=== PATIENT | male | born 1960 | race Caucasian/White ===

== ENCOUNTER 2017-07-14 22:28 | Emergency (ER) | payer BC ==
[~2017-07-14] VITALS: Ht 188 cm; Wt 121.0 kg
[2017-07-14 23:23] VITALS: BP 139/93; PULSE 90; RESP 18; O2SAT 95
--- NOTE | 2017-07-14 23:43 | PD ---
HPI Chief Complaint: Cardiac Complaint Time Seen by Provider: 23:27 Travel History International Travel<30 days: No Contact w/Intl Traveler<30days: No Traveled to known affect area: No History of Present Illness HPI 57-year-old male complains of dizziness, sweating, shortness of breath. Patient states that he has intermittent shortness of breath for the past 6 months. Patient started having intermittent dizziness and sweating for the past 2 weeks. Patient denies any headache. Patient denies any chest pain. Patient denies abdominal pain. Patient denies any nausea vomiting diarrhea. Patient denies any fever chills. Patient denies any coughing congestion. Patient denies any dysuria or frequency. Patient status post aortic valve surgery in 1964. Patient denies any history of CAD. Patient denies history hypertension, diabetes, hyperlipidemia. Patient is a smoker. Patient states that he drinks wine daily. PFSH Past Medical History Diverticulitis: Yes Medical other: Yes (CDIFF 2015) Pancreatitis: Yes Past Surgical History Cardiac Surgery: Yes (OPEN HEART 1964) Social History Alcohol Use: Yes (3 GLASSES OF WINE DAILY) Tobacco Use: Yes (1PPD) Substance Use: No Allergies-Medications (Allergen,Severity, Reaction): Coded Allergies: No Known Allergies (Unverified , 07/15/17) Review of Systems General / Constitutional: No: Fever Eyes: No: Visual changes HENT: Positive: Lightheadedness, No: Headaches Cardiovascular: No: Chest Pain or Discomfort Respiratory: No: Shortness of Breath Gastrointestinal: No: Abdominal Pain Genitourinary: No: Dysuria Musculoskeletal: No: Pain Skin: No Rash Neurologic: No: Weakness Psychiatric: No: Depression Endocrine: No: Polydipsia Hematologic/Lymphatic: No: Easy Bruising Physical Exam Narrative GENERAL: Well-nourished, well-developed patient. SKIN: Focused skin assessment warm/dry. HEAD: Normocephalic. EYES: No scleral icterus. No injection or drainage. NECK: Supple, trachea midline. No JVD or lymphadenopathy. CARDIOVASCULAR: Regular rate and rhythm without murmurs, gallops, or rubs. RESPIRATORY: Breath sounds equal bilaterally. No accessory muscle use. GASTROINTESTINAL: Abdomen soft, non-tender, nondistended. MUSCULOSKELETAL: No cyanosis, or edema. BACK: Nontender without obvious deformity. No CVA tenderness. Neurologic exam normal. Data Data Last Documented VS Vital Signs Date Time Temp Pulse Resp B/P (MAP) Pulse Ox O2 Delivery O2 Flow Rate FiO2 07/14/17 23:23 90 18 139/93 (108) 95 Orders Orders Electrocardiogram (07/14/17 23:35) Complete Blood Count With Diff (07/14/17 23:35) Comprehensive Metabolic Panel (07/14/17 23:35) Creatine Kinase (Cpk) (07/14/17 23:35) Troponin I (07/14/17 23:35) B-Type Natriuretic Peptide (07/14/17 23:35) Prothrombin Time / Inr (Pt) (07/14/17 23:35) Act Partial Throm Time (Ptt) (07/14/17 23:35) Urinalysis - C+S If Indicated (07/14/17 23:35) Thyroid Stimulating Hormone (07/14/17 23:35) Chest, Single Ap (07/14/17 23:35) Iv Access Insert/Monitor (07/14/17 23:35) Ecg Monitoring (07/14/17 23:35) Oximetry (07/14/17 23:35) Alcohol (Ethanol) (07/14/17 23:35) Levofloxacin (Levaquin) (07/15/17 03:00) Labs Laboratory Tests Test 07/14/17 23:45 White Blood Count 7.5 TH/MM3 Red Blood Count 4.36 MIL/MM3 Hemoglobin 14.8 GM/DL Hematocrit 43.1 % Mean Corpuscular Volume 98.8 FL Mean Corpuscular Hemoglobin 34.0 PG Mean Corpuscular Hemoglobin Concent 34.4 % Red Cell Distribution Width 13.8 % Platelet Count 260 TH/MM3 Mean Platelet Volume 8.1 FL Neutrophils (%) (Auto) 54.9 % Lymphocytes (%) (Auto) 33.0 % Monocytes (%) (Auto) 9.7 % Eosinophils (%) (Auto) 1.2 % Basophils (%) (Auto) 1.2 % Neutrophils # (Auto) 4.1 TH/MM3 Lymphocytes # (Auto) 2.5 TH/MM3 Monocytes # (Auto) 0.7 TH/MM3 Eosinophils # (Auto) 0.1 TH/MM3 Basophils # (Auto) 0.1 TH/MM3 CBC Comment DIFF FINAL Differential Comment Prothrombin Time 10.4 SEC Prothromb Time International Ratio 1.0 RATIO Activated Partial Thromboplast Time 28.9 SEC Blood Urea Nitrogen 10 MG/DL Creatinine 1.21 MG/DL Random Glucose 97 MG/DL Total Protein 7.6 GM/DL Albumin 3.7 GM/DL Calcium Level 8.9 MG/DL Alkaline Phosphatase 78 U/L Aspartate Amino Transf (AST/SGOT) 84 U/L Alanine Aminotransferase (ALT/SGPT) 76 U/L Total Bilirubin 0.4 MG/DL Sodium Level 141 MEQ/L Potassium Level 4.1 MEQ/L Chloride Level 105 MEQ/L Carbon Dioxide Level 27.2 MEQ/L Anion Gap 9 MEQ/L Estimat Glomerular Filtration Rate 61 ML/MIN Total Creatine Kinase 289 U/L Troponin I LESS THAN 0.02 NG/ML B-Type Natriuretic Peptide 23 PG/ML Thyroid Stimulating Hormone 3rd Gen 5.850 uIU/ML Ethyl Alcohol Level 289 MG/DL [facility] Medical Decision Making Medical Screen Exam Complete: Yes Emergency Medical Condition: Yes Interpretation(s) Last Impressions Chest X-Ray 07/14/17 [id number] Signed Impressions: Service Date/Time: Friday, July 14, 2017 23:42 - CONCLUSION: Small infiltrate left lung base could be a small area of pneumonia. Martin Frost MD 2:41 AM. CBC within normal limits. CMP within normal limits. Cardiac enzymes are normal. TSH 5.85. Alcohol 289. Differential Diagnosis Differential diagnosis including vasovagal reaction, heat exhaustion, viral syndrome. Narrative Course 57-year-old male with intermittent dizziness, sweating, shortness of breath. Levaquin 750 mg p.o. given. Diagnosis Primary Impression: Pneumonia Qualified Codes: J18.1 - Lobar pneumonia, unspecified organism Additional Impression: Alcohol intoxication Qualified Codes: F10.920 - Alcohol use, unspecified with intoxication, uncomplicated Patient Instructions: General Instructions Additional Instructions: Take medication as directed. Follow-up with personal physician. Return if worse. Med/Other Pt SpecificInfo: Prescription(s) given Scripts Levofloxacin (Levaquin) 750 Mg Tablet 750 MG PO DAILY for Infection, #7 TAB 0 Refills Prov: Juan Manuel Luna MD 07/15/17 Disposition: 01 DISCHARGE HOME Condition: Stable Juan Manuel Luna MD Jul 14, 2017 23:43
--- NOTE | 2017-07-15 | RADRPT ---
EXAM DATE/TIME: 07/14/2017 23:42 [facility] COMPARISON: No previous studies available for comparison. INDICATIONS : Short of breath. Sweating profusely. MEDICAL HISTORY : None. SURGICAL HISTORY : Open heart surgury. ENCOUNTER: Initial ACUITY: 1 day PAIN SCORE: 0/10 LOCATION: Bilateral chest FINDINGS: A single view of the chest demonstrates the lungs to be symmetrically aerated without evidence of mas s, or effusion. Small infiltrate left lung base. The cardiomediastinal contours are unremarkable. O sseous structures are intact. CONCLUSION: Small infiltrate left lung base could be a small area of pneumonia. Martin Frost MD on July 14, 2017 at 23:58 Board Certified Radiologist. This report was verified electronically.
[2017-07-15 00:07] LABS: AUTOMATED NEUTROPHIL # 4.1 TH/MM3 (1.8-7.7); BASOPHIL # 0.1 TH/MM3 (0-0.2); BASOPHIL % 1.2 % (0.0-2.0); EOSINOPHIL # 0.1 TH/MM3 (0-0.4); EOSINOPHIL % 1.2 % (0.0-4.0); HEMATOCRIT 43.1 % (39.0-51.0); HEMOGLOBIN 14.8 GM/DL (13.0-17.0); LYMPHOCYTE # 2.5 TH/MM3 (1.0-4.8); MEAN CELL VOLUME 98.8 FL (80.0-100.0); MEAN CORPUSCULAR HGB CONC 34.4 % (32.0-36.0); MEAN PLATELET VOLUME 8.1 FL (7.0-11.0); MONO % 9.7 % (0.0-8.0); MONOCYTE # 0.7 TH/MM3 (0-0.9); NEUT % 54.9 % (16.0-70.0); PLATELET COUNT 260 TH/MM3 (150-450); RED BLOOD COUNT 4.36 MIL/MM3 (4.50-5.90); RED CELL DISTRIBUTION WIDTH 13.8 % (11.6-17.2); WHITE BLOOD COUNT 7.5 TH/MM3 (4.0-11.0)
[2017-07-15 00:13] LABS: PROTHROMBIN TIME - PATIENT 10.4 SEC (9.8-11.6)
[2017-07-15 00:27] LABS: ALBUMIN 3.7 GM/DL (3.4-5.0); AST (GOT) 84 U/L (15-37); BICARBONATE 27.2 MEQ/L (21.0-32.0); BLOOD UREA NITROGEN 10 MG/DL (7-18); CALCIUM 8.9 MG/DL (8.5-10.1); CHLORIDE 105 MEQ/L (98-107); CREATININE 1.21 MG/DL (0.60-1.30); GLOMERULAR FILTRATION RATE 61 ML/MIN (>89); GLUCOSE,RANDOM 97 MG/DL (74-106); SODIUM (NA) 141 MEQ/L (136-145)
[2017-07-15 00:28] LABS: ALT (GPT) 76 U/L (12-78)
[2017-07-15 00:47] LABS: ALKALINE PHOSPHATASE 78 U/L (45-117); TOTAL BILIRUBIN ADULT 0.4 MG/DL (0.2-1.0); TOTAL PROTEIN 7.6 GM/DL (6.4-8.2); TROPONIN I LESS THAN 0.02 NG/ML (0.02-0.05)
[2017-07-15] MEDS ORDERED: LEVA750T9 PO (02:48)
[2017-07-15] MEDS ORDERED: LEVOFLOXACIN 750 MG TAB PO ONE (03:00)
[2017-07-15 03:10] VITALS: BP 142/92; PULSE 100; RESP 18; O2SAT 98
--- NOTE | 2017-07-15 13:55 | EKG ---
Date Performed: 07/14/2017 Time Performed: 23:26:02 PTAGE: 57 years EKG: SINUS TACHYCARDIA MARKED RIGHT AXIS DEVIATION RIGHT BUNDLE BRANCH BLOCK ABNORMAL ECG NO PREVIOUS TRACING DOCTOR: Joni Ch Interpretating Date/Time 07/15/2017 13:53:23
== END 2017-07-15 03:12 | disposition home or self-care (01) ==
LOC: NEPC 22:28
DX: J18.1 Lobar pneumonia, unspecified organism (principal); F10.129 Alcohol abuse with intoxication, unspecified; F17.210 Nicotine dependence, cigarettes, uncomplicated; R61 Generalized hyperhidrosis; Y90.8 Blood alcohol level of 240 mg/100 ml or more
CPT/HCPCS: 71045; 80053; 80307; 82550; 83880; 84443; 84484; 85025; 85610; 85730; 93005; 99285